=== PATIENT | male | born 1965 | race Caucasian/White ===

== ENCOUNTER 2017-04-23 16:26 | Emergency (ER) | payer OTHER, BC ==
[2017-04-23 16:45] VITALS: BP 145/85; PULSE 90; TEMP 98.3; BMI 36.1
--- NOTE | 2017-04-23 17:12 | PDOC ---
History of Present Illness - General Chief Complaint: Pain, Acute Stated Complaint: PAIN Time Seen by Provider: 04/23/17 17:00 - History of Present Illness Initial Comments: 04/23/17 17:39 Patient is a 52-year-old male with past medical history of type 1 diabetes, opioid addiction in remission, who presents to the emergency department today complaining of left leg pain. Patient states he was mowing the grass yesterday at work when the mower ran into a ditch and he subsequently twisted his knee trying to stabilize the lawnmower. Since then he says that his knee is swollen and it hurts to bend his knee. He is able to ambulate. He states every time he bends his knee he has shooting pain up and down the back of his leg. Denies weakness, numbness, tingling, fevers, chills, shortness of breath, cough and dyspnea. Past History - Travel Traveled outside of the country in the last 30 days: No Close contact w/someone who was outside of country & ill: No - Past Medical History Allergies/Adverse Reactions: Allergies Allergy/AdvReac Type Severity Reaction Status Date / Time Penicillins Allergy Unknown Verified 04/23/17 16:37 Home Medications: Ambulatory Orders Insulin Pump Cartridge DAILY 09/27/16 Invokana DAILY 09/27/16 Prilosec DAILY 09/27/16 Diabetes: Yes (pt has insulin pump) GI Disorders: Yes (GERD) - Suicide/Smoking/Psychosocial Hx Smoking History: Former smoker Have you smoked in the past 12 months: No If you are a former smoker, when did you quit?: 2011 Information on smoking cessation initiated: No Hx Alcohol Use: No Drug/Substance Use Hx: No Substance Use Type: None Review of Systems - Review of Systems Able to Perform ROS?: Yes Comments:: 04/23/17 17:39 CONSTITUTIONAL: Absent: fever, chills, diaphoresis, generalized weakness, malaise, loss of appetite HEENT: Absent: rhinorrhea, nasal congestion, throat pain, throat swelling, difficulty swallowing, mouth swelling, ear pain, eye pain, visual Changes CARDIOVASCULAR: Absent: chest pain, loss of consciousness, palpitations, irregular heart rate, peripheral edema RESPIRATORY: Absent: cough, shortness of breath, dyspnea with exertion, orthopnea, wheezing, stridor, hemoptysis GASTROINTESTINAL: Absent: abdominal pain, abdominal distension, nausea, vomiting, diarrhea, constipation, melena, hematochezia GENITOURINARY: Absent: dysuria, frequency, urgency, hesitancy, hematuria, flank pain, genital pain MUSCULOSKELETAL: Absent: myalgia, arthralgia, joint swelling SKIN: Absent: rash, itching, pallor HEMATOLOGIC/IMMUNOLOGIC: Absent: easy bleeding, easy bruising, lymphadenopathy, frequent infections ENDOCRINE: Absent: unexplained weight gain, unexplained weight loss, heat intolerance, cold intolerance NEUROLOGIC: Absent: headache, focal weakness or paresthesias, dizziness, unsteady gait, seizure, mental status changes, bladder or bowel incontinence PSYCHIATRIC: Absent: anxiety, depression, suicidal or homicidal ideation, hallucinations. Is the patient limited Maltese proficient: No *Physical Exam - Vital Signs Last Vital Signs Temp Pulse Resp BP Pulse Ox 98.3 F 90 18 145/85 98 04/23/17 16:33 04/23/17 16:33 04/23/17 16:33 04/23/17 16:33 04/23/17 16:33 - Physical Exam Comments: 04/23/17 17:39 GENERAL: Well developed, well nourished. Awake and alert. No acute distress. HEENT: Normocephalic, atraumatic. PERRLA, EOMI. No conjunctival pallor. Sclera are non- icteric. Moist mucous membranes. Oropharynx is clear. NECK: Supple. Full ROM. No JVD. Carotid pulses 2+ and symmetric, without bruits. No thyromegaly. No lymphadenopathy. CARDIOVASCULAR: Regular rate and rhythm. No murmurs, rubs, or gallops. Distal pulses are 2+ and symmetric. PULMONARY: No evidence of respiratory distress. Lungs clear to auscultation bilaterally. No wheezing, rales or rhonchi. ABDOMINAL: Soft. Non-tender. Non-distended. No rebound or guarding. No organomegaly. Normoactive bowel sounds. MUSCULOSKELETAL Normal range of motion at all other joints. No bony deformities or tenderness. No CVA tenderness. EXTREMITIES: Left knee with gross swelling anteriorly. Palpable fluid wave. Decreased range of motion in the left knee with flexion and extension. Left knee special tests: Negative anterior drawer, posterior draw. Negative valgus and varus maneuvers. Negative Deon's test. Negative Ohara test. No cyanosis. No clubbing. No edema. No calf tenderness. SKIN: Warm and dry. Normal capillary refill. No rashes. No jaundice. NEUROLOGICAL: Alert, awake, appropriate. Cranial nerves 2-12 intact. No deficits to light touch and temperature in face, upper extremities and lower extremities. No motor deficits in the in face, upper extremities and lower extremities. Normoreflexic in the upper and lower extremities. Normal speech. Toes are down- going bilaterally. Gait is normal without ataxia. PSYCHIATRIC: Cooperative. Good eye contact. Appropriate mood and affect. Medical Decision Making - Medical Decision Making 04/23/17 17:42 *DC/Admit/Observation/Transfer Diagnosis at time of Disposition: Bursitis, traumatic - Discharge Dispostion Disposition: HOME Condition at time of disposition: Good Admit: No - Referrals Referrals: Carrie Calero MD [Primary Care Provider] - Reg Gonzales MD [Staff Physician] - - Patient Instructions Printed Discharge Instructions: DI for Bursitis Additional Instructions: You have a bursitis (fluid sac) of your knee. Your x-ray today was negative for any fracture. You may use ice on the area to help reduce the swelling. Take ibuprofen as needed for pain, 800 mg 3 times a day not to exceed 3000 mg a day. If you do not want to take ibuprofen, you may try Alieve which is over the counter. Follow the dosing instructions on the bottle. Follow up with orthopedics in the next 2-3 days. Return to the emergency department if you have fevers, chills, worsening leg pain, shortness of breath, or calf pain, or any changes in your symptoms. - Post Discharge Activity Forms/Work/School Notes: Back to Work
[2017-04-23] MEDS ORDERED: KETOROLAC TROMETHAMINE 60 MG/2 ML VIAL IM ONE (17:14)
[2017-04-23] MEDS ORDERED: KETOROLAC TROMETHAMINE 60 MG/2 ML VIAL ONE (18:28)
== END 2017-04-23 19:03 | disposition home or self-care (01) ==
LOC: JERFT 16:26 → JER 16:26
PROC: 3E0233Z Introduction of Anti-inflammatory into Muscle, Percutaneous Approach (ICD-10-PCS; principal; 2017-04-23)
DX: M71.562 Other bursitis, not elsewhere classified, left knee (principal); X50.1XXA Overexertion from prolonged static or awkward postures, initial encounter; Y93.H2 Activity, gardening and landscaping; Y92.89 Other specified places as the place of occurrence of the external cause; Y99.0 Civilian activity done for income or pay; E10.9 Type 1 diabetes mellitus without complications; Z79.4 Long term (current) use of insulin; Z96.41 Presence of insulin pump (external) (internal); Z87.891 Personal history of nicotine dependence
CPT/HCPCS: 73562-TC-LT; 99281-25